=== PATIENT | male | born 1950 | race Native Hawaiian/Other Pacific Islander ===

== ENCOUNTER → 2020-09-23 | Outpatient (CLI) | payer MEDICARE, OTHER ==
[2020-09-23 11:10] LABS: Basophils # (A) 0.1 k/uL (0-0.2); Basophils % (A) 1 %; Eosinophils % (A) 0 %; HCT 46.8 % (39.0-53.0); HGB 15.2 gm/dL (13.0-17.5); Lymphocytes # (A) 2.1 k/uL (1.0-4.8); Lymphocytes % (A) 24 %; MCH 32.3 pg (25.0-35.0); MCHC 32.5 g/dL (31.0-37.0); MCV 99.4 fL (80.0-100.0); Mean Platelet Volume 6.7; Monocytes # (A) 0.8 k/uL (0-1.0); Monocytes % (A) 9 %; Neutrophils # (A) 5.4 k/uL (1.3-7.7); Neutrophils % (A) 63 %; Platelet Count 257 k/uL (150-450); RBC 4.71 m/uL (4.30-5.90); WBC 8.6 k/uL (3.8-10.6)
[2020-09-23 14:47] LABS: Albumin 4.1 g/dL (3.80-4.90); Albumin/Globulin Ratio 2.05 (1.60-3.17); Anion Gap 1.7 mmol/L (4.00-12.00); Calcium 9.3 mg/dL (8.7-10.3); Carbon Dioxide 29.3 mmol/L (21.6-31.8); Non-African American GFR(CKD) 75.9 (60.0-200.0); Potassium 4.7 mmol/L (3.5-5.5); Total Bilirubin 1.1 mg/dL (0.2-1.2); Total Protein 6.1 g/dL (6.2-8.2)
[2020-09-23 14:56] LABS: T4, Free (Free Thyroxine) 1.1 ng/dL (0.80-1.80)
[2020-09-23 21:41] LABS: Hemoglobin A1C 5.5 % (4.0-6.0)
== END | disposition home or self-care (01) ==
LOC: LABWHC1 09:14
PROVIDERS: ATTEND Nurse Practitioner
DX: E78.5 Hyperlipidemia, unspecified (principal); R63.4 Abnormal weight loss
CPT/HCPCS: 36415; 80053; 83036; 84439; 84443; 84481; 85025

== ENCOUNTER 2020-10-04 09:00 | Day surgery (SDC) | payer MEDICARE, OTHER ==
[2020-09-30 11:38] VITALS: BMI 23.1
[~2020-10-04 09:00] MED LIST: LACTATED RINGERS 1,000 ML IV SCH
[2020-10-04] MEDS ORDERED: LIDOCAINE 1% (10MG/ML) FOR IV START INTRADERMA ONE (09:45)
[2020-10-04 09:51] VITALS: RESP 16; TEMP 97.2
[2020-10-04 09:55] LABS: Glucose,Whole Blood 102 mg/dL (75-99)
[2020-10-04] MEDS ORDERED: PROPOFOL 10 MG/ML 20 ML VIAL IV ONE (09:59)
[2020-10-04] MEDS ORDERED: LIDOCAINE 1% INJ 10MG/ML (20 ML MDV) ONE (09:59)
[2020-10-04 10:15] VITALS: PULSE 57
--- NOTE | 2020-10-04 10:19 | P.PCN ---
Date of Procedure: 10/04/20 Description of Procedure: BRIEF HISTORY: Patient is a 70-year-old male presenting for outpatient es ophagogastroduodenoscopy for evaluation of anorexia. Patient has lost approximately 20 pounds since 04/2020. He does have a history of reflux. 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 PROCEDURE PERFORMED: Esophagogastroduodenoscopy with biopsy. PREOPERATIVE DIAGNOSIS: Anorexia, GERD. ESTIMATED BLOOD LOSS: Minimal. IV sedation per anesthesia. PROCEDURE: After informed consent was obtained, the patient was brought into the endoscopy unit. IV sedation was administered by Anesthesia under continuous monitoring. Initially the Olympus GIF-190 video endoscope was inserted into the mouth. Esophagus intubated without any difficulty. It was gradually advanced into the stomach and duodenum and carefully examined. The bulb and the second part of the duodenum appeared normal, with biopsies taken. The scope at this time was withdrawn to the stomach, adequately insufflated with air, and upon careful examination, mucosa of the antrum, body, cardia and the fundus appeared normal, with mild scattered erythema in the antrum and body suggestive of mild gastritis with biopsies taken. The scope was then withdrawn into the esophagus. The GE junction was located at 36 cm from the incisors, with a 1 cm hiatal hernia noted. There were 6 cm of salmon-colored mucosa in the distal esophagus suggestive of Castillo's esophagus with biopsies taken of the distal esophagus. . There were no erosions or ulcerations seen and the patient tolerated the procedure well. IMPRESSION: 1. 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 2. Mild gastritis. 3. Small hiatal hernia. 4. Biopsies of the duodenum, antrum and body and distal esophagus. RECOMMENDATIONS: The findings of this examination were discussed with the patient and his family. Okay to resume diet. Okay to resume medications. Await pathology from biopsies. Follow up in GI clinic as scheduled. Recommend repeat EGD in 2-3 years if pathology is consistent with Castillo's esophagus.
[2020-10-04 10:35] VITALS: BP 145/76
== END 2020-10-04 11:15 | disposition home or self-care (01) ==
LOC: ORWHC2ENDO 09:00
PROVIDERS: ATTEND Internal Medicine
DX: K29.50 Unspecified chronic gastritis without bleeding (principal); K44.9 Diaphragmatic hernia without obstruction or gangrene; K21.9 Gastro-esophageal reflux disease without esophagitis; Z94.0 Kidney transplant status; Z98.890 Other specified postprocedural states; Z96.611 Presence of right artificial shoulder joint; Z72.0 Tobacco use; I10 Essential (primary) hypertension; E78.5 Hyperlipidemia, unspecified; Z79.82 Long term (current) use of aspirin; Z79.52 Long term (current) use of systemic steroids; Z79.899 Other long term (current) drug therapy; Z97.2 Presence of dental prosthetic device (complete) (partial)
CPT/HCPCS: 88305; 43239; J2001; J2704

== ENCOUNTER 2024-06-10 07:24 | Day surgery (SDC) | payer MEDICARE, OTHER ==
[2024-06-10 07:46] VITALS: TEMP 97
[2024-06-10] MEDS: LACTATED RINGERS 1,000 ML IV SCH (07:58)
[2024-06-10] MEDS: IV FLUID CONTINUATION 1,000 ML IV ONE (07:59)
[2024-06-10 08:01] LABS: Glucose,Whole Blood 118 mg/dL (70-110)
[2024-06-10] MEDS ORDERED: PROPOFOL 10 MG/ML 20 ML VIAL IV ONE (08:09)
--- NOTE | 2024-06-10 08:26 | P.GSHP ---
History of Present Illness H&P Date: 06/10/24 CHIEF COMPLAINT: Colon screen HISTORY OF PRESENT ILLNESS: The patient is a 74-year-old male who presents for colon screen. Lower endoscopy was offered for further evaluation and management. PAST MEDICAL HISTORY: Please see list. PAST SURGICAL HISTORY: Please see list. MEDICATIONS: Please see list. ALLERGIES: Please see list. SOCIAL HISTORY: No illicit drug use FAMILY HISTORY: No reports of Crohn disease or ulcerative colitis. REVIEW OF ORGAN SYSTEMS: CONSTITUTIONAL: No reports of fevers or chills. PHYSICAL EXAM: VITAL SIGNS: Stable GENERAL: Well-developed pleasant in no acute distress. HEENT: No scleral icterus. Extraocular movements grossly intact. Moist buccal mucosa. NECK: Supple without lymphadenopathy. CHEST: Unlabored respirations. Equal bilateral excursions. CARDIOVASCULAR: Regular rate and rhythm. Distal 2+ pulses. ABDOMEN: Soft, nontender, nondistended. MUSCULOSKELETAL: No clubbing, cyanosis, or edema. ASSESSMENT: 1. Colon screen. PLAN: 1. Recommend proceeding with a lower endoscopy Past Medical History Past Medical History: Cancer, GERD/Reflux, Hyperlipidemia, Hypertension, Osteoarthritis (OA) Additional Past Medical History / Comment(s): , hx cancerous polyps. hx of ki dney transplant 2015. both of his kidneys are not functioning. back pain History of Any Multi-Drug Resistant Organisms: None Reported Past Surgical History: Back Surgery, Bowel Resection, Joint Replacement Additional Past Surgical History / Comment(s): TOTAL RT SHOULDER with metal. GSWA 1996 - REPAIRED. LIPOMAS REMOVED FROM ABD, LFA, rt arm and neck. colonoscopy. kidney transplant. polyps removed. check on blood flow issues to legs Past Anesthesia/Blood Transfusion Reactions: No Reported Reaction Smoking Status: Former smoker, Heavy tobacco smoker - Past Family History Mother Family Medical History: Diabetes Mellitus Father Family Medical History: CVA/TIA Brother(s) Family Medical History: Cancer Additional Family Medical History / Comment(s): esophageal Medications and Allergies Home Medications Medication Instructions Recorded Confirmed Type Atorvastatin [Lipitor] 10 mg PO HS 07/28/14 06/10/24 History Loratadine [Claritin] 10 mg PO DAILY 07/28/14 06/10/24 History amLODIPine [Norvasc] 5 mg PO DAILY 07/28/14 06/10/24 History Aspirin [Adult Low Dose Aspirin EC] 81 mg PO DAILY 09/30/20 06/10/24 History Calcium 1 tab PO BID 09/30/20 06/10/24 History Ergocalciferol [Vitamin D2] 50,000 unit PO Q30D 09/30/20 06/10/24 History Famotidine [Pepcid] 20 mg PO DAILY 09/30/20 06/10/24 History Fenofibrate 160 mg PO BID 09/30/20 06/10/24 History Fish Oil 1 tab PO BID 09/30/20 06/10/24 History Magnesium Chloride [Mag64] 64 mg PO BID 09/30/20 06/10/24 History Metoprolol Tartrate [Lopressor] 25 mg PO QAM 09/30/20 06/10/24 History Pantoprazole [Protonix] 40 mg PO DAILY 09/30/20 06/10/24 History Tacrolimus [Prograf] 0.5 mg PO BID 09/30/20 06/10/24 History Tamsulosin [Flomax] 0.4 mg PO DAILY 09/30/20 06/10/24 History predniSONE 5 mg PO DIRECTED 09/30/20 06/10/24 History Unk Taper Dose Steroids 1 tab PO DIRECTED 06/08/24 06/10/24 History Allergies Allergy/AdvReac Type Severity Reaction Status Date / Time No Known Allergies Allergy Verified 06/10/24 07:43 Surgical - Exam Vital Signs Temp Pulse Resp BP Pulse Ox 97.0 F L 62 18 183/84 97 06/10/24 07:41 06/10/24 07:41 06/10/24 07:41 06/10/24 07:41 06/10/24 07:41 Results - Labs Abnormal Lab Results - Last 24 Hours (Table) 06/10/24 Range/Units 07:55 POC Glucose (mg/dL) 118 H (70-110) mg/dL
--- NOTE | 2024-06-10 08:30 | P.PCN ---
Date of Procedure: 06/10/24 Description of Procedure: PREOPERATIVE DIAGNOSIS: History of right Jf colectomy due to colon polyp Colonoscopy screening. POSTOPERATIVE DIAGNOSIS: Colonoscopy screening. OPERATION: Colonoscopy to the ileocecal valve SURGEON: Bess Powell MD. ANESTHESIA: MAC. INDICATIONS: The patient is a 74-year-old male who presents with pre-existing high risk colon adenoma status post right hemicolectomy. The presents for colonoscopy surveillance. Benefits and risks were described and informed consent was obtained. DESCRIPTION OF PROCEDURE: The patient had undergone GoLytely prep. The patient had been brought into the operating room and laid in the left lateral decubitus position. After adequate intravenous sedation, the rectum was examined with 2% lidocaine jelly. No external hemorrhoids were encountered. The rectal tone was within normal limits. No lesions were palpated in the rectal vault. An Olympus colonoscope was advanced to the ileocolic anastomosis. The prep was excellent. No scattered diverticulosis was encountered. No colonic polyps were found. No evidence of focal colitis was found. Retroflexion of the scope demonstrated grade 1 internal hemorrhoids without active bleeding or inflammation. The colon was desufflated. The patient had tolerated the procedure well. Withdrawal time was over 6 minutes. FINDINGS: Aronchick preparation quality scale 1 (1-5) Internal hemorrhoids, grade 1 No external prolapsed hemorrhoids. No arteriovenous malformations. No adenomatous polyps. No focal colitis. Ileocolic anastomosis unremarkable RECOMMENDATIONS: Lower endoscopy in 5 years, 2028 Plan - Discharge Summary Discharge Rx Participant: No New Discharge Prescriptions: Continue Loratadine [Claritin] 10 mg PO DAILY amLODIPine [Norvasc] 5 mg PO DAILY Atorvastatin [Lipitor] 10 mg PO HS Ergocalciferol [Vitamin D2 (DRISDOL)] 50,000 unit PO Q30D predniSONE 5 mg PO DIRECTED Famotidine [Pepcid] 20 mg PO DAILY Tamsulosin [Flomax] 0.4 mg PO DAILY Tacrolimus [Prograf] 0.5 mg PO BID Pantoprazole [Protonix] 40 mg PO DAILY Metoprolol Tartrate [Lopressor] 25 mg PO QAM Magnesium Chloride [Mag64] 64 mg PO BID Fish Oil 1 tab PO BID Calcium 1 tab PO BID Aspirin [Adult Low Dose Aspirin EC] 81 mg PO DAILY Fenofibrate 160 mg PO BID Unk Taper Dose Steroids 1 tab PO DIRECTED Discharge Medication List Atorvastatin [Lipitor] 10 mg PO HS 07/28/14 [History] Loratadine [Claritin] 10 mg PO DAILY 07/28/14 [History] amLODIPine [Norvasc] 5 mg PO DAILY 07/28/14 [History] Aspirin [Adult Low Dose Aspirin EC] 81 mg PO DAILY 09/30/20 [History] Calcium 1 tab PO BID 09/30/20 [History] Ergocalciferol [Vitamin D2 (DRISDOL)] 50,000 unit PO Q30D 09/30/20 [History] Famotidine [Pepcid] 20 mg PO DAILY 09/30/20 [History] Fenofibrate 160 mg PO BID 09/30/20 [History] Fish Oil 1 tab PO BID 09/30/20 [History] Magnesium Chloride [Mag64] 64 mg PO BID 09/30/20 [History] Metoprolol Tartrate [Lopressor] 25 mg PO QAM 09/30/20 [History] Pantoprazole [Protonix] 40 mg PO DAILY 09/30/20 [History] Tacrolimus [Prograf] 0.5 mg PO BID 09/30/20 [History] Tamsulosin [Flomax] 0.4 mg PO DAILY 09/30/20 [History] predniSONE 5 mg PO DIRECTED 09/30/20 [History] Unk Taper Dose Steroids 1 tab PO DIRECTED 06/08/24 [History] Follow up Appointment(s)/Referral(s): Bess Powell MD [STAFF PHYSICIAN] - As Needed Patient Instructions/Handouts: Moderate Sedation (DC) Activity/Diet/Wound Care/Special Instructions: Repeat colonoscopy in 5 years, 2028 Discharge Disposition: HOME SELF-CARE
[2024-06-10 08:47] VITALS: BP 129/63; PULSE 58; RESP 17
== END 2024-06-10 09:06 | disposition home or self-care (01) ==
LOC: ORWHC2ENDO 07:24
PROVIDERS: ATTEND Surgery Plastic and Reconstructive Surgery
DX: Z12.11 Encounter for screening for malignant neoplasm of colon (principal); K64.0 First degree hemorrhoids; E78.5 Hyperlipidemia, unspecified; I10 Essential (primary) hypertension; K21.9 Gastro-esophageal reflux disease without esophagitis; M19.90 Unspecified osteoarthritis, unspecified site; Z86.010 Personal history of colon polyps; Z79.82 Long term (current) use of aspirin; Z87.19 Personal history of other diseases of the digestive system; Z87.891 Personal history of nicotine dependence; Z90.49 Acquired absence of other specified parts of digestive tract; Z94.0 Kidney transplant status; Z79.899 Other long term (current) drug therapy
CPT/HCPCS: J2704; G0105; 45378

== ENCOUNTER → 2025-05-29 | Outpatient (CLI) | payer MEDICARE, OTHER ==
[2025-05-29 13:34] LABS: Basophils # (A) 0.07 X 10*3/uL (0.00-0.10); Basophils % (A) 0.8 %; Eosinophils # (A) 0.08 X 10*3/uL (0.04-0.35); Eosinophils % (A) 1.0 %; HCT 44.4 % (39.6-50.0); HGB 15.6 g/dL (13.0-17.0); Immature Grans, Automated 1.10 %; Lymphocytes # (A) 2.66 X 10*3/uL (0.90-5.00); Lymphocytes % (A) 32.2 %; MCH 31.8 pg (27.0-32.0); MCHC 35.1 g/dL (32.0-37.0); MCV 90.4 FL (80.0-97.0); Monocytes # (A) 1.09 X 10*3/uL (0.20-1.00); Monocytes % (A) 13.2 %; NRBC Per 100 WBC 0 X 10*3/uL (0.00-0.01); Neutrophils # (A) 4.27 X 10*3/uL (1.80-7.70); Neutrophils % (A) 51.7 %; Platelet Count 271 X 10*3/uL (140-440); RBC 4.91 X 10*6/uL (4.40-5.60); RDW 12.8 % (11.5-14.5); WBC 8.26 X 10*3/uL (4.50-10.00)
[2025-05-29 14:03] LABS: ALT 22 U/L (10-49); AST 19 U/L (14-35); Albumin 4.1 g/dL (3.8-4.9); Albumin/Globulin Ratio 1.64 Ratio (1.60-3.17); Alkaline Phosphatase 75 U/L (41-126); Anion Gap 12.90 mmol/L (4.00-12.00); BUN/Creat Ratio 13.30 Ratio (12.00-20.00); Blood Urea Nitrogen 13.3 mg/dL (9.0-27.0); Calcium 9.2 mg/dL (8.7-10.3); Carbon Dioxide 26.1 mmol/L (21.6-31.8); Chloride 100 mmol/L (96-109); Cholesterol 156.00 mg/dL (0.00-200.00); Globulin 2.5 g/dL (1.6-3.3); Glucose 123 mg/dL (70-110); HDL Cholesterol 56.70 mg/dL (40.00-60.00); LDL Cholesterol,Calculated 78.5 mg/dL (0.0-131.0); Potassium 3.8 mmol/L (3.5-5.5); Prostate Specific Antigen 0.74 ng/mL (0.000-6.500); Sodium 139 mmol/L (135-145); Total Protein 6.6 g/dL (6.2-8.2); Triglycerides 104.00 mg/dL (0.00-149.00); VLDL Calculation 20.80 mg/dL (5.00-40.00)
== END | disposition home or self-care (01) ==
LOC: LABWHC1 08:23
PROVIDERS: ATTEND Family Medicine
DX: Z00.01 Encounter for general adult medical examination with abnormal findings (principal)
CPT/HCPCS: 36415; 80053; 80061; 82306; 83036; 84153; 84443; 85025